=== PATIENT | female | born 1990 | race Caucasian/White ===

== ENCOUNTER 2024-04-01 17:04 | Emergency (ER) | payer MEDICAID ==
[~2024-04-01] VITALS: Ht 180.3 cm; Wt 86.2 kg
[2024-04-01 18:06] VITALS: BP_SYST 102; PULSE 87; RESP 16; TEMP 98.1; O2SAT 98
[2024-04-01 20:50] VITALS: BP_SYST 105; PULSE 87; RESP 16; TEMP 97.6; O2SAT 100
== END 2024-04-01 20:50 | disposition home or self-care (01) ==
LOC: SED 17:04
DX: R05.9 Cough, unspecified (principal); R06.02 Shortness of breath; Z71.1 Person with feared health complaint in whom no diagnosis is made
CPT/HCPCS: 71046; 99283